=== PATIENT | male | born 1980 | race Caucasian/White ===

== ENCOUNTER 2016-09-02 13:02 | Emergency (ER) | payer OTHER ==
[~2016-09-02] VITALS: Ht 182.9 cm; Wt 124.8 kg
[2016-09-02 13:09] VITALS: TEMP 37; Ht 182.9 cm; Wt 124.8 kg
[2016-09-02] MEDS ORDERED: SODIUM CHLORIDE 0.9% 1000ML 1,000 ML IV STA (14:37)
[2016-09-02] MEDS ORDERED: ONDANSETRON INJ 2 MG/ML 2 ML VIAL IV STA (14:37)
[2016-09-02] MEDS ORDERED: CEFAZOLIN SOD 1000MG/55 ML D5W IV STA (14:38)
--- NOTE | 2016-09-02 14:40 | EMERGENCY ROOM VISIT NOTE ---
History Report prepared by Osmar: Vadim Kinsey Under the Supervision of: Dr. Estela Figueroa D.O. First contact with patient: 14:10 Chief Complaint: ILLNESS Stated Complaint: FEVER,NAUSEA,EXTREME PAIN R LEG History of Present Illness The patient is a 35 year old male who presents to the Emergency Room with complaints of persistent right leg pain that started 2 nights ago. He says that he was seen at urgent care earlier, and was recommended to come here to get blood cultures due to possible cellulitis. The patient states that starting 2 nights ago, he has been fatigued and nauseous with cold sweats. He says that he vomited once on the first day of symptom onset. The patient had an episode of cold sweats 2 hours ago. He says that he started having right leg pain 2 nights ago, and noticed redness of his leg yesterday morning. The patient states that he does not remember bumping or hitting his right leg, nor does he remember having his right leg being bitten. He says a flea bite is possible, however. The patient notes that this has has never happened to him before. He denies any joint swelling, diarrhea, bowel movement changes, or urinary symptoms. The patient says that he has not had any recent travels. He denies any sores anywhere else other than the right leg. The patient denies any history of MRSA. He is not diabetic. Source of History: patient Onset: 2 nights ago Position: leg (right) Quality: other (pain) Timing: other (persistent) Associated Symptoms: + diaphoresis, + nausea, + vomiting, + fatigue, No diarrhea, No urinary symptoms Note: Associated symptoms: Right leg redness, episodes of cold sweats. Denies joint swelling, bowel movement changes. Review of Systems See HPI for pertinent positives & negatives. A total of 10 systems reviewed and were otherwise negative. Past Medical & Surgical Medical Problems: (1) Gastroesophageal reflux disease (2) Tonsillectomy Family History Diabetes mellitus Heart disease Hypertension Social History Smoking Status: Never Smoker Marital Status: single Occupation Status: unemployed Current/Historical Medications Scheduled Cephalexin Monohydrate (Keflex), 500 MG PO QID Hydrocortisone (Topical) (Hydrocortisone), 1 TOP BID Sulfa/Trimethoprim (Bactrim Ds 800MG/160MG), 1 TAB PO BID Allergies Coded Allergies: Tetracyclines & Related (Unverified Allergy, Severe, HIVES, 09/02/16) Physical Exam Vital Signs Date Time Temp Pulse Resp B/P (MAP) Pulse Ox O2 Delivery O2 Flow Rate FiO2 09/02/16 18:47 81 16 127/75 96 09/02/16 17:54 85 16 132/89 98 Room Air 09/02/16 16:23 87 16 144/89 96 Room Air 09/02/16 15:51 87 16 140/86 98 Room Air 09/02/16 15:02 91 23 94 09/02/16 14:31 133/81 09/02/16 13:09 37.0 92 18 131/78 95 Room Air Physical Exam GENERAL: alert, well appearing, well nourished, no distress, non-toxic EYE EXAM: normal conjunctiva, PERRL and EOM's grossly intact OROPHARYNX: no exudate, no erythema, lips, buccal mucosa, and tongue normal and mucous membranes are moist NECK: supple, no nuchal rigidity, no adenopathy, non-tender LUNGS: Clear to auscultation. Normal chest wall mechanics HEART: no murmurs, S1 normal and S2 normal ABDOMEN: abdomen soft, non-tender, normo-active bowel sounds, no masses, no rebound or guarding. BACK: Back is symmetrical on inspection and there is no deformity, no midline tenderness, no CVA tenderness. SKIN: no rashes and no bruising UPPER EXTREMITIES: upper extremities are grossly normal. LOWER EXTREMITIES: Right lower extremity has a large area of erythema, not circumferential, no sloughing, no vesicles, no bullae, no petechiae. Warm to touch, no distal edema, normal pulses, normal cap refill. NEURO EXAM: Normal sensorium, cranial nerves II-XII grossly intact, normal speech, no gross weakness of arms, no gross weakness of legs. No drift. Finger to nose intact. Gross sensation intact. Medical Decision & Procedures ER Provider Diagnostic Interpretation: US results have been interpreted by the radiologist and reviewed by me. RIGHT LOWER EXTREMITY VENOUS DOPPLER HISTORY: edema/erythema Right COMPARISON STUDY: None. FINDINGS: There is normal compressibility, flow, and augmentation within the right lower extremity deep venous system. There is a 3.1 x 4.1 x 1.5 cm right inguinal lymph node. IMPRESSION: No DVT within the right lower extremity. Mildly enlarged right inguinal lymph node. This could be reactive. Electronically signed by: Lino Neal M.D. 09/02/2016 4:59 PM Dictated Date/Time: 09/02/2016 4:58 PM Laboratory Results 09/02/16 14:48 Red Blood Count 5.11, Mean Corpuscular Volume 84.5, Mean Corpuscular Hemoglobin 29.7, Mean Corpuscular Hemoglobin Concent 35.2, Mean Platelet Volume 10.0, Neutrophils (%) (Auto) 85.3, Lymphocytes (%) (Auto) 7.9, Monocytes (%) (Auto) 6.6, Eosinophils (%) (Auto) 0.0, Basophils (%) (Auto) 0.1, Neutrophils # (Auto) 10.34, Lymphocytes # (Auto) 0.96, Monocytes # (Auto) 0.80, Eosinophils # (Auto) 0.00, Basophils # (Auto) 0.01 09/02/16 14:48 Test 09/02/16 14:48 White Blood Count 12.12 K/uL (4.8-10.8) Red Blood Count 5.11 M/uL (4.7-6.1) Hemoglobin 15.2 g/dL (14.0-18.0) Hematocrit 43.2 % (42-52) Mean Corpuscular Volume 84.5 fL (80-100) Mean Corpuscular Hemoglobin 29.7 pg (25-34) Mean Corpuscular Hemoglobin Concent 35.2 g/dl (32-36) Platelet Count 187 K/uL (130-400) Mean Platelet Volume 10.0 fL (7.4-10.4) Neutrophils (%) (Auto) 85.3 % Lymphocytes (%) (Auto) 7.9 % Monocytes (%) (Auto) 6.6 % Eosinophils (%) (Auto) 0.0 % Basophils (%) (Auto) 0.1 % Neutrophils # (Auto) 10.34 K/uL (1.4-6.5) Lymphocytes # (Auto) 0.96 K/uL (1.2-3.4) Monocytes # (Auto) 0.80 K/uL (0.11-0.59) Eosinophils # (Auto) 0.00 K/uL (0-0.5) Basophils # (Auto) 0.01 K/uL (0-0.2) RDW Standard Deviation 40.6 fL (36.4-46.3) RDW Coefficient of Variation 13.1 % (11.5-14.5) Immature Granulocyte % (Auto) 0.1 % Immature Granulocyte # (Auto) 0.01 K/uL (0.00-0.02) Anion Gap 9.0 mmol/L (3-11) Est Creatinine Clear Calc Drug Dose 139.4 ml/min Estimated GFR () 111.7 Estimated GFR (Non- 96.4 BUN/Creatinine Ratio 10.9 (10-20) Calcium Level 8.9 mg/dl (8.5-10.1) Total Bilirubin 1.2 mg/dl (0.2-1) Aspartate Amino Transf (AST/SGOT) 12 U/L (15-37) Alanine Aminotransferase (ALT/SGPT) 33 U/L (12-78) Alkaline Phosphatase 77 U/L (45-117) Total Protein 7.7 gm/dl (6.4-8.2) Albumin 3.9 gm/dl (3.4-5.0) Globulin 3.8 gm/dl (2.5-4.0) Albumin/Globulin Ratio 1.0 (0.9-2) Laboratory results per my review. Medications Administered Medications (Trade) Dose Ordered Sig/Samantha Route Start Time Stop Time Status Last Admin Dose Admin Ondansetron HCl (Zofran Inj) 4 mg NOW STAT IV 09/02/16 14:37 09/02/16 14:38 DC 09/02/16 15:14 4 MG Sodium Chloride 1,000 ml @ 999 mls/hr Q1H1M STAT IV 09/02/16 14:37 09/02/16 15:37 DC 09/02/16 15:14 999 MLS/HR Cefazolin Sodium (Ancef 1000mg/55 ml D5W) 1,000 mg NOW STAT IV 09/02/16 14:38 09/02/16 14:39 DC 09/02/16 15:14 1,000 MG Trimethoprim/ Sulfamethoxazole (Septra Ds 800/ 160MG Tab) 1 tab NOW STAT PO 09/02/16 16:41 09/02/16 16:42 DC 09/02/16 16:51 1 TAB Ketorolac Tromethamine (Toradol Inj) 30 mg NOW STAT IV 09/02/16 17:19 09/02/16 17:20 DC 09/02/16 17:27 30 MG Acetaminophen (Tylenol Tab) 1,000 mg NOW STAT PO 09/02/16 17:19 09/02/16 17:20 DC 09/02/16 17:27 1,000 MG Acetaminophen/ Hydrocodone Bitart ([place] 5/325 Tab) 1 tab NOW ONCE PO 09/02/16 18:30 09/02/16 18:31 DC 09/02/16 18:31 1 TAB ED Course 1428: The patient was evaluated in room A12B. A complete history and physical exam was performed. 1437: Ordered NSS 1000 ml @ 999 mls/hr IV, Zofran Inj 4 mg IV. 1438: Ordered Ancef 1000mg/55 ml D5W 1000 mg IV. 1514: I reevaluated and updated the patient. 1641: Ordered Septra Ds 800/160MG Tab 1 tab PO. 1715: I reevaluated and updated the patient. The patient verbally expressed understanding and agreement of the treatment plan. The patient will be discharged. 1719: Ordered Tylenol Tab 1000 mg PO, Toradol Inj 30 mg IV. Medical Decision Prior records reviewed and summarized as above. Triage Nursing notes reviewed. Differential diagnosis: Etiologies such as cellulitis, abscess, MRSA infection, DVT, necrotizing fasciitis, dermatitis, drug eruption, as well as others were entertained.. Medication Reconciliation: I attest that I have personally reviewed the patient' s current medication list. Blood pressure screening: Patient was found to have an elevated blood pressure and was referred to their primary doctor for recheck and further treatment. Pt well appearing despite complaints. Doppler and labs reassuring, mild leukocytosis noted. No risk factors for more significant infection including DM , hx of MRSA, immunocompromised state. Pt started on antibiotics here and given meds for pain. Doubt nec fasc, no recent travel or exposures to suggest less common infection. Discussed with pt at length sx to watch/return for, use of antibiotics, hydration, elevation of leg, f/u with PMD or if unable to return here withint 48 hours for a recheck. Area marked with marking pen to help monitor for changes. Impression Primary Impression: Cellulitis Scribe Attestation The scribe's documentation has been prepared under my direction and personally reviewed by me in its entirety. I confirm that the note above accurately reflects all work, treatment, procedures, and medical decision making performed by me. Departure Information Dispostion Home / Self-Care Prescriptions Cephalexin Monohydrate (Keflex) 500 Mg Cap 500 MG PO QID, #28 CAP Prov: Estela FigueroaRatna, DO 09/02/16 Sulfa/Trimethoprim (Bactrim Ds 800MG/160MG) Tab 1 TAB PO BID, #14 TAB Prov: Estela Figueroa, DO 09/02/16 Referrals No Doctor, Assigned (PCP) Patient Instructions [facility] Additional Instructions Please follow up with her family doctor within the next 48 hours. If you're unable to do so please return to emergency room for recheck. Please take the antibiotics as prescribed, and please drink plenty of water to stay well- hydrated. If the redness appears to be spreading and getting worse, you develop increased pain or swelling, noticed additional discoloration, blistering , or sloughing of the skin, develop fevers or chills, vomiting, abdominal pain, runny other new concerns, please return the emergency room. Please elevate the affected leg when at rest. Problem Qualifiers Primary Impression: Cellulitis Site of cellulitis: extremity Site of cellulitis of extremity: lower extremity Laterality: right Qualified Codes: L03.115 - Cellulitis of right lower limb
[2016-09-02] MEDS ORDERED: HYDR2.5O TOP (15:01)
[2016-09-02 15:21] LABS: BASO % 0.1 %; BASO ABS # 0.01 K/uL (0-0.2); COMPLETE YES; HEMATOCRIT 43.2 % (42-52); IG% 0.1 %; LYMPH % 7.9 %; LYMPH ABS # 0.96 K/uL (1.2-3.4); MEAN CELL VOLUME 84.5 fL (80-100); MEAN CORPUSCULAR HEMOGLOBIN 29.7 pg (25-34); MEAN CORPUSCULAR HGB CONC 35.2 g/dl (32-36); MONO % 6.6 %; NEUT % 85.3 %; PLATELET COUNT 187 K/uL (130-400); RED BLOOD COUNT 5.11 M/uL (4.7-6.1); WHITE BLOOD COUNT 12.12 K/uL (4.8-10.8)
[2016-09-02 15:31] LABS: BUN/CREATININE RATIO 10.9 (10-20); CALCIUM 8.9 mg/dl (8.5-10.1); POTASSIUM 3.8 mmol/L (3.5-5.1)
[2016-09-02] MEDS ORDERED: SULFAMETHOXAZOLE/TRIMETHOPRIM DS 800/160MG TAB PO STA (16:41)
--- NOTE | 2016-09-02 17:00 | DIAGNOSTIC IMAGING REPORT ---
RIGHT LOWER EXTREMITY VENOUS DOPPLER HISTORY: edema/erythema Right COMPARISON STUDY: None. FINDINGS: There is normal compressibility, flow, and augmentation within the right lower extremity deep venous system. There is a 3.1 x 4.1 x 1.5 cm right inguinal lymph node. IMPRESSION: No DVT within the right lower extremity. Mildly enlarged right inguinal lymph node. This could be reactive. Electronically signed by: Lino Neal M.D. 09/02/2016 4:59 PM Dictated Date/Time: 09/02/2016 4:58 PM
[2016-09-02] MEDS ORDERED: KETOROLAC TROMETHAMINE 30 MG/ML VIAL IV STA (17:19)
[2016-09-02] MEDS ORDERED: ACETAMINOPHEN 500 MG TAB PO STA (17:19)
[2016-09-02] MEDS ORDERED: CEPH500C PO (18:11)
[2016-09-02] MEDS ORDERED: SULF800T23 PO (18:11)
[2016-09-02] MEDS ORDERED: HYDROCODONE/ACETAMOPHEN 5/325MG TAB PO ONE (18:30)
[2016-09-02 18:47] VITALS: BP 127/75; PULSE 81; O2SAT 96
== END 2016-09-02 18:50 | disposition home or self-care (01) ==
LOC: C.EDB 13:03 → C.EDA 18:50
DX: L03.115 Cellulitis of right lower limb (principal); K21.9 Gastro-esophageal reflux disease without esophagitis; Z98.890 Other specified postprocedural states; Z88.8 Allergy status to other drugs, medicaments and biological substances; Z83.3 Family history of diabetes mellitus; Z82.49 Family history of ischemic heart disease and other diseases of the circulatory system